=== PATIENT | female | born 1965 | race Caucasian/White ===

== ENCOUNTER 2018-02-20 15:26 | Outpatient (CLI) | payer OTHER | END 2018-02-20 15:27 | disposition home or self-care (01) | LOC: BICMAMMO 15:26 | PROVIDERS: ATTEND Family Medicine | DX: Z12.31 Encounter for screening mammogram for malignant neoplasm of breast (principal); N64.89 Other specified disorders of breast | CPT/HCPCS: 77063; 77067 ==

== ENCOUNTER 2018-03-08 14:24 | Outpatient (CLI) | payer OTHER | END 2018-03-08 14:25 | disposition home or self-care (01) | LOC: BICMAMMO 14:24 | PROVIDERS: ATTEND Family Medicine | DX: R92.8 Other abnormal and inconclusive findings on diagnostic imaging of breast (principal) | CPT/HCPCS: G0279 ==

== ENCOUNTER 2018-03-22 14:45 | Outpatient (CLI) | payer OTHER ==
[2018-03-22 15:55] LABS: #Basophils 0.1 thou/uL (0.0-0.2); #Eosinphils 0.2 thou/uL (0.0-0.7); #Lymphocytes 3.2 thou/uL (1.20-3.40); #Monocytes 0.5 thou/uL (0.11-0.59); %Basophils 1.7 % (0.0-1.0); %Eosinophils 3.3 % (0.0-10.0); %Lymphocytes 45.7 % (21.0-51.0); %Monocytes 6.8 % (0.0-10.0); %Neutrophils 42.6 % (42.0-75.0); Hemoglobin 13.1 g/dL (12.0-16.0); Mean Corpuscular HGB CONC 33.6 g/dL (32.0-36.0); Mean Corpuscular Hemoglobin 31.9 pg (27.0-31.0); Mean Platelet Volume 7.5 fL (7.4-10.4); Platelet Count 209 thou/uL (130-400); RBC Distribution Width 11.8 % (11.5-14.5); Red Blood Cell (RBC) Count 4.11 mill/uL (4.20-5.40)
[2018-03-22 16:20] LABS: ALT (SGPT) 12 U/L (8-55); AST (SGOT) 17 U/L (5-34); Albumin 4.4 g/dL (3.5-5.0); Alkaline Phosphatase 69 U/L (40-150); Anion Gap 15 mmol/L (10-20); BUN (Urea Nitrogen) 14 mg/dL (9.8-20.1); Bilirubin, Total 0.4 mg/dL (0.2-1.2); Calc. Creatinine Clearance 0 mL/min (70-130); Calcium 9.5 mg/dL (7.8-10.44); Carbon Dioxide 23 mmol/L (22-29); Chloride 107 mmol/L (98-107); Estimated GFR-MDRD 80; Globulin 2.7 g/dL (2.4-3.5); Glucose 86 mg/dL (70-105); Protein, Total 7.1 g/dL (6.0-8.3); Sodium 141 mmol/L (136-145)
--- NOTE | 2018-03-26 23:07 | EKG ---
Test Reason : Blood Pressure : / mmHG Vent. Rate : 066 BPM Atrial Rate : 066 BPM P-R Int : 156 ms QRS Dur : 082 ms QT Int : 398 ms P-R-T Axes : 066 087 060 degrees QTc Int : 417 ms Normal sinus rhythm Possible Anterior infarct , age undetermined Abnormal ECG When compared with ECG of 21-MAR-2012 09:57, No significant change was found Confirmed by Anil GRIJALVA ([id number]) on 03/26/2018 11:07:33 PM Referred By: YASH Confirmed By:Anil GRIJALVA
== END 2018-03-22 14:46 | disposition home or self-care (01) ==
LOC: LABBT 14:45
PROVIDERS: ATTEND Specialist
DX: Z01.818 Encounter for other preprocedural examination (principal)
CPT/HCPCS: 80053; 85025; 93005; 93010

== ENCOUNTER 2018-03-31 07:00 | Day surgery (SDC) | payer OTHER ==
--- NOTE | 2018-03-22 12:17 | HP ---
HISTORY OF PRESENT ILLNESS: Christelle Rubio is a 53-year-old female patient who is known to me. I have done a past biopsy of her right breast more than 20 years ago and she had a right thyroid adenom a for a goiter in 1999. Patient presents for screening mammogram demonstrating a 12 to 1 o'clock rig ht breast density suspicious, but not seen on ultrasound. She has had previous breast augmentations placed and then removed. Self-breast examination is negative. FAMILY HISTORY: Negative. Density seen on mammogram is not amenable to sterotactic biopsy. ALLERGIES: None. SOCIAL HISTORY: Tobacco less than one-third pack per day. Alcohol rarely. MEDICATIONS: None. ALLERGIES: None. PAST SURGICAL HISTORY: Breast augmentation placed and removed by Dr. 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 She is up-to-date on her co lonoscopy. Family history is negative for breast cancer or any other significant problems. REVIEW OF SYSTEMS: Ten point noncontributory. PHYSICAL EXAMINATION: VITAL SIGNS: 143 pounds, 63 inches, 25 BMI, 120/70, 78, 98.4 degrees. HEAD EARS, EYES NOSE AND THROAT: Unremarkable. LUNGS: Clear to auscultation. CARDIAC: Regular rate and rhythm without murmur or gallop. ABDOMEN: Soft, nontender. EXTREMITIES: Unremarkable. Axillae without lymphadenopathy. BREASTS: Without palpable masses. ASSESSMENT AND PLAN: Right breast density seen on mammogram, nonpalpable by self examination or exam ination by me. Not seen on ultrasound. Plan, mammographically needle localization prior to excision al biopsy under anesthesia as outpatient. She understands risks and benefits and consents.
[2018-03-22 14:46] VITALS: BMI 24.4
[2018-03-31] MEDS ORDERED: Scopolamine 1.5 mg/72 hour Patch ONE (09:09)
[2018-03-31] MEDS ORDERED: Ketorolac Tromethamine 30 MG/ML VIAL ONE (09:09)
[2018-03-31] MEDS ORDERED: Bupivacaine HCl 0.5%/Epinephrine 1:200,000/PF 30 ml Vial ONE (11:56)
[2018-03-31] MEDS ORDERED: Lidocaine 2% 10 ML INJ ONE (11:56)
[2018-03-31] MEDS ORDERED: Bupivacaine/Epinephrine 0.25% 30 ML VIAL ONE (11:56)
[2018-03-31] MEDS ORDERED: Fentanyl 100 MCG/2 ML VIAL ONE (12:01)
--- NOTE | 2018-03-31 13:12 | MMO ---
NEEDLE LOCALIZATION RIGHT BREAST MASS: History: Right breast mass. FINDINGS: After explaining the procedure and answering all questions, the subtle isodense mass deep within the superior aspect of the right breast was visualized. Sterile technique, buffered local anesthesia, meenu mographic guidance and a superior approach were used to carefully advance a 20 gauge Osgood needle and wire into the area of the mass deep within the superior aspect right breast. Position was confirmed with mammographic imaging. Images were sent with the patient to day surgery. Patient tolerated the pr ocedure well and was dismissed in good condition. IMPRESSION: Technically successful needle localization right breast mass. Pathology is pending. POS: LUCIA
[2018-03-31] MEDS ORDERED: Ondansetron HCl/PF 4 MG/2 ML Vial ONE (13:17)
[2018-03-31] MEDS ORDERED: ePHEDrine/0.9% NaCl/PF SYRINGE 50 mg/10 ml ONE (13:17)
[2018-03-31] MEDS ORDERED: Lidocaine 1% PF 5 ML VIAL ONE (13:17)
[2018-03-31] MEDS ORDERED: Dexamethasone 20 MG/5 ML VIAL ONE (13:17)
[2018-03-31] MEDS ORDERED: PROPOFOL 200 MG/20 ML VIAL ONE (13:17)
--- NOTE | 2018-03-31 16:51 | OP ---
PREOPERATIVE DIAGNOSIS: Right breast density, upper midline deep right breast, nonpalpable, not seen on ultrasound. POSTOPERATIVE DIAGNOSIS: Right breast density, upper midline deep right breast, nonpalpable, not see n on ultrasound. PROCEDURE: Image directed needle localized excisional biopsy, right breast density. SURGEON: Dr. José Miguel Arana ANESTHESIA: General LMA. Local 0.5% Marcaine with epinephrine 30 mL with 2% Xylocaine, 10 mL. Note , specimen mammography not performed due to the subtle density would not be seen radiologically (disc ussed with the radiologist to localize this). PROCEDURE IN DETAIL: Patient taken to the operating room where under general anesthesia, her right b reast was prepared with ChloraPrep, draped in routine fashion. Localizing wire entered the right cliff ast upper midline directed inferiorly towards the areola. Superior areolar incision made the skin an d subcutaneous tissue after localizing area with local anesthetic. Between the subcutaneous tissue a nd breast tissue, flap was dissected free superiorly towards the localizing wire which was brought in to the incision and a core breast tissue dissected free from around the localizing wire including a s mall amount of pectoralis muscle and submitted to pathology in formalin. Hemostasis gained with caut luciano. A subtle density palpating the site side mass, excised mass remained in the patient's breast wo und. I could not palpate any other abnormalities. Good hemostasis obtained with the cautery. Subcu taneous tissues approximated with 3-0 Monocryl, skin with subdermal 4-0 Monocryl and DermaGlue applie d. The patient tolerated the procedure well. Boom wrap placed.
== END 2018-03-31 14:43 | disposition home or self-care (01) ==
LOC: SDC 07:00
PROVIDERS: ATTEND Specialist
PROC: 0HBT0ZX Excision of Right Breast, Open Approach, Diagnostic (ICD-10-PCS; principal; 2018-03-31)
DX: N63.12 Unspecified lump in the right breast, upper inner quadrant (principal); F17.210 Nicotine dependence, cigarettes, uncomplicated; E89.0 Postprocedural hypothyroidism; Z79.899 Other long term (current) drug therapy
CPT/HCPCS: 19281; 88305; J0131; J0670; J1100; J1885; J2001; J2405; J2704; J3010

== ENCOUNTER 2021-05-19 14:24 | Outpatient (CLI) | payer OTHER | END 2021-05-19 14:25 | disposition home or self-care (01) | LOC: BICMAMMO 14:24 | PROVIDERS: ATTEND Family Medicine | DX: Z12.31 Encounter for screening mammogram for malignant neoplasm of breast (principal); Z98.82 Breast implant status | CPT/HCPCS: 77063; 77067 ==